=== PATIENT | male | born 1995 | race Caucasian/White ===

== ENCOUNTER 2016-09-02 14:28 | Emergency (ER) | payer OTHER ==
[~2016-09-02] VITALS: Ht 177.8 cm; Wt 71.8 kg
[2016-09-02 14:29] VITALS: TEMP 36.3; Ht 177.8 cm; Wt 71.8 kg
[2016-09-02] MEDS ORDERED: ANUSOL SUPP 1 EA PR STA (15:34)
[2016-09-02] MEDS ORDERED: LIDOCAINE/EPINEPHRINE 1% 20 ML VIAL INFIL STA (15:34)
[2016-09-02] MEDS ORDERED: HYDR2.5C37 TOP (15:47)
--- NOTE | 2016-09-02 15:54 | EMERGENCY ROOM VISIT NOTE ---
History Report prepared by Conor: Aruna Tyler Under the Supervision of: Dr. David Buckner M.D. First contact with patient: 14:48 Chief Complaint: RECTAL PAIN Stated Complaint: HEMORRHOID History of Present Illness The patient is a 21 year old male who presents to the Emergency Room with complaints of persistent rectal pain starting 4 days ago. He went to [facility] who sent him to the ED. His pain worsened through the week. He is having difficulty sitting because of the pain. He started using Preparation H 2 days ago. Last night he noticed that he began bleeding when he wiped. There was no blood in his stool. His pain has improved somewhat after the bleeding started. He has been having a bowel movement once a day. He had some similar bleeding 4 years ago which resolved after 2 days. He has never followed with a GI doctor. Source of History: patient Onset: 4 days ago Position: other (rectal) Quality: other (pain) Timing: other (persistent) Note: Pt reports rectal bleeding. Review of Systems See HPI for pertinent positives & negatives. A total of 10 systems reviewed and were otherwise negative. Past Medical & Surgical Medical Problems: (1) No chronic problems Family History Cancer FH: depression Kidney disease Seizures Social History Smoking Status: Never Smoker Alcohol Use: occasionally Drug Use: none Marital Status: single Housing Status: lives with roommate Occupation Status: [employer] student Current/Historical Medications Scheduled Hydrocortisone 2.5% (Rectal) (Anusol-Hc 2.5%), 1 APPLN TOP BID Allergies Coded Allergies: No Known Allergies (Unverified , 09/02/16) Physical Exam Vital Signs Date Time Temp Pulse Resp B/P Pulse Ox O2 Delivery O2 Flow Rate FiO2 09/02/16 16:25 99 18 90/71 97 Room Air 09/02/16 14:29 36.3 102 18 128/66 96 Room Air Physical Exam GENERAL: Patient is a healthy-appearing well-nourished HEAD: Normocephalic atraumatic EYES: Ocular movements intact pupils equal and react to light OROPHARYNX mucous membranes are moist no exudates present no erythema or edema present NECK: Supple no nuchal rigidity CHEST: Good equal expansion LUNGS: Clear and equal to auscultation CARDIAC: Normal S1 and S2 ABDOMEN: Soft nontender no guarding BACK: No CVA tenderness RECTAL: Bleeding hemorrhoid present at the 6 o'clock position of the rectum, no evidence of pilonidal cyst present. EXTREMITIES: No pain upon palpation normal muscle strength in all groups no clubbing cyanosis or edema NEURO: Patient is following commands is answering questions appropriately. Alert and oriented x3 Cranial Nerves 2-12 grossly intact Medical Decision & Procedures Medications Administered Medications (Trade) Dose Ordered Sig/Den Route Start Time Stop Time Status Last Admin Dose Admin Hard Fat/ Phenylephrine (Anusol Supp) 1 ea NOW STAT GA 09/02/16 15:34 09/02/16 15:35 DC 09/02/16 15:34 1 EA ED Course 1526: Past medical records reviewed. The patient was evaluated in room B7. A complete history and physical examination was performed. 1534: Lidocaine/Epinephrine 20 ml INFIL, Anusol Supp 1 ea GA. 1544: Upon reexamination the patient is resting comfortably. I discussed results and treatment plan with the patient. He verbalizes agreement and understanding. The patient is ready for discharge. Medical Decision This is a 21-year-old male who presents emergency department complaining of rectal bleeding. The patient does have a hemorrhoid in this area and reports he had been climbing in and out of a golf cart all morning. I believe this contributed to the bleeding. The hemorrhoid itself was injected with lidocaine and epinephrine. Repeat examination revealed improvement the patient's symptoms. I'm going to give the patient in Anusol suppository and encouraged him to continue taking Anusol. I recommended a MiraLAX cleanout and start adding MiraLAX to his diet. I also recommended follow-up with gastroenterology which the patient is going to do at home. Patient was in agreement with the treatment plan. Impression Primary Impression: Bleeding external hemorrhoids Scribe Attestation The scribe's documentation has been prepared under my direction and personally reviewed by me in its entirety. I confirm that the note above accurately reflects all work, treatment, procedures, and medical decision making performed by me. Departure Information Dispostion Home / Self-Care Prescriptions Hydrocortisone 2.5% (Rectal) (ANUSOL-HC 2.5%) 2.5 % Cre 1 APPLN TOP BID for 7 Days, #30 GM 1 Refill Prov: David Buckner MD 09/02/16 Referrals No Doctor, Assigned (PCP) Forms HOME CARE DOCUMENTATION FORM, IMPORTANT VISIT INFORMATION, WORK / SCHOOL INSTRUCTIONS Patient Instructions My [facility] Additional Instructions Take 10 oz bottle of miralax; Add to 16 oz of gatorade Drink continuously until moving creamy stools Clear liquid diet for next 48 hours Return if you develop fevers or pain worsens Follow up with gastroenterology You have been examined and treated today on an emergency basis only. This is not a substitute for, or an effort to provide, complete comprehensive medical care. It is impossible to recognize and treat all injuries or illnesses in a single emergency department visit. It is therefore important that you follow up closely with your PCP. Call as soon as possible for an appointment. Thank you for your time and consideration. I look forward to speaking with you again soon. Please don't hesitate to call us if you have any questions.
[2016-09-02 16:25] VITALS: BP 90/71; PULSE 99; O2SAT 97
== END 2016-09-02 16:26 | disposition home or self-care (01) ==
LOC: C.EDB 14:28
DX: K64.4 Residual hemorrhoidal skin tags (principal); K62.5 Hemorrhage of anus and rectum; Z81.8 Family history of other mental and behavioral disorders; Z82.0 Family history of epilepsy and other diseases of the nervous system; Z84.1 Family history of disorders of kidney and ureter